=== PATIENT | female | born 1985 | race African-American/Black ===

== ENCOUNTER 2017-02-28 03:30 | Emergency (ER) | payer SELFPAY ==
[~2017-02-28] VITALS: Ht 152.4 cm; Wt 72.6 kg
[~2017-02-28 03:30] MED LIST: NORCO 5-325 TA1 EACH ORAL
[2017-02-28] MEDS ORDERED: Solu-MEDROL 125mg Inj IVP ONE (03:45)
[2017-02-28] MEDS ORDERED: DiphenhydrAMINE 50mg/ml Inj IVP ONE (03:45)
[2017-02-28] MEDS ORDERED: Famotidine 20 MG/ 2ML VIAL IVP ONE (03:45)
[2017-02-28] MEDS ORDERED: PREDNISONE20 MG ORAL (03:48)
[2017-02-28] MEDS ORDERED: BENADRYL25 MG ORAL (03:48)
--- NOTE | 2017-02-28 03:48 | Emergency Room Report ---
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 She presents with chief complaint of severe allergic reaction. She woke up with a rash and diffuse body itching. She had barbecue tonight. She prepared the ingredients herself. No new medication. No nausea or vomiting. No respiratory complaint. She took some liquid Benadryl. Allergies: Coded Allergies: ASPIRIN (Verified Allergy, Unknown, 07/12/15) IBUPROFEN (Verified Allergy, Unknown, 07/12/15) Patient History Past Medical History: see triage record, old chart reviewed Past Surgical History: none Pertinent Family History: none Social History: Denies: smoking Now: No Immunizations: other Reviewed Nursing Documentation: PMH: Agreed, PSxH: Agreed Review of Systems Eye: Denies: blurred vision, eye pain ENT: Denies: ear pain, nose congestion, throat swelling Respiratory: Denies: cough, shortness of breath Cardiovascular: Denies: chest pain, palpitations Gastrointestinal: Denies: abdominal pain, diarrhea, nausea, vomiting Musculoskeletal: Denies: back pain, joint pain Skin: Denies: rash Neurological: Denies: headache, numbness Endocrine: Denies: increased thirst, increased urine Hematologic/Lymphatic: Denies: easy bruising All Other Systems: negative except mentioned in HPI Physical Exam vitals unremarkable Sp02 EP Interpretation: reviewed, normal General Appearance: well appearing, no apparent distress, alert Head: normocephalic, atraumatic Eyes: bilateral eye EOMI, bilateral eye PERRL ENT: hearing grossly normal, normal pharynx Neck: full range of motion, supple, no meningismus Respiratory: chest non-tender, lungs clear, normal breath sounds Cardiovascular #1: regular rate, rhythm, no murmur Gastrointestinal: normal bowel sounds, non tender, no mass, no organomegaly, no bruit, non-distended Musculoskeletal: back normal, gait/station normal, normal range of motion Neurologic: alert, oriented x3 Psychiatric: mood/affect normal Skin: warm/dry, other - Diffuse urticaria Medical Decision Making Diagnostic Impression: Primary Impression: Allergic reaction Qualified Codes: T78.40XA - Allergy, unspecified, initial encounter ER Course Patient present with allergic reaction. Unknown etiology. No evidence of anaphylaxis. Better after medication. We'll discharge home. Status: improved Disposition: HOME, SELF-CARE Condition: Stable Scripts Prednisone* (PREDNISONE*) 20 Mg Tablet 60 MG ORAL DAILY, #15 TAB Prov: STEPHANIE FERRER M.D. 02/28/17 Diphenhydramine Hcl* (BENADRYL*) 25 Mg Capsule 50 MG ORAL Q6H Y for Itching, #30 CAP Prov: STEPHANIE FERRER M.D. 02/28/17 Additional Instructions: Followup with your Dr. in 2-3 days. Return if symptom worsen. STEPHANIE FERRER M.D. Feb 28, 2017 03:48
[2017-02-28 05:12] VITALS: BP 110/66
[2017-02-28 05:13] VITALS: BP 110/66
== END 2017-02-28 05:14 | disposition home or self-care (01) ==
LOC: EMR 05:03
DX: L50.0 Allergic urticaria (principal); Z88.6 Allergy status to analgesic agent; Z91.018 Allergy to other foods
CPT/HCPCS: 96374; 96375; 99284; J1200; J2930; S0028

== ENCOUNTER 2019-08-13 10:23 | Emergency (ER) | payer MEDICAID ==
[~2019-08-13] VITALS: Ht 154.9 cm; Wt 72.6 kg
[~2019-08-13 10:23] MED LIST changes: +BENADRYL25 MG ORAL; +PREDNISONE20 MG ORAL
--- NOTE | 2019-08-13 10:36 | NUR ---
ED Nurse Note: Pt ambulated to ED with c/o flu-like symptoms with nasal congestion, cough, bodyache x 4 days. Pt is AOx4, VSS, on RA. Placed on bed.
[2019-08-13 10:38] VITALS: BP 113/76
[2019-08-13] MEDS ORDERED: PROMETHAZINE-C118 M1 ORAL (11:06)
[2019-08-13] MEDS ORDERED: ALBUTEROL SULF8.5 GM INH (11:06)
[2019-08-13] MEDS ORDERED: TAMIFLU75 MG ORAL (11:06)
--- NOTE | 2019-08-13 11:18 | NUR ---
ED Nurse Note: Patient is being d/c from medical care. D/C instruction and prescription given to patient. All questions were answered. Patient ambulated out with steady gait.
--- NOTE | 2019-08-13 14:33 | Emergency Room Report ---
History of Present Illness General Chief Complaint: Flu Like Symptoms Source: Patient Present Illness Allergies: Coded Allergies: ASPIRIN (Verified Allergy, Unknown, 07/12/15) IBUPROFEN (Verified Allergy, Unknown, 07/12/15) Patient History Last Menstrual Period: 06/2019 Now: No Nursing Documentation-[facility] Past Medical History: No Stated History Physical Exam Vital Signs Date Time Temp Pulse Resp B/P (MAP) Pulse Ox O2 Delivery O2 Flow Rate FiO2 08/13/19 10:29 98.1 83 16 113/76 (88) 98 Room Air Medical Decision Making Diagnostic Impression: Primary Impression: Influenza-like symptoms Last Vital Signs Date Time Temp Pulse Resp B/P (MAP) Pulse Ox O2 Delivery O2 Flow Rate FiO2 08/13/19 10:38 83 16 Room Air 08/13/19 10:38 98.1 113/76 99 Disposition: HOME, SELF-CARE Condition: Stable Scripts Albuterol Sulfate* (ALBUTEROL SULFATE MDI*) 8.5 Gm Hfa.aer.ad 2 PUFF INH Q6H, #1 EA 0 Refills Prov: Tato Lucero MD 08/13/19 Codeine/Promethazine Hcl* (PROMETHAZINE-CODEINE SYRUP*) 118 Ml Syrup 5 ML ORAL Q6H PRN for For Cough, #118 ML 0 Refills Prov: Tato Lucero MD 08/13/19 Oseltamivir Phosphate (Tamiflu) 75 Mg Capsule 75 MG ORAL TWICE A DAY for 5 Days, CAP Prov: Tato Lucero MD 08/13/19 Referrals: [facility],REFERRING (PCP) Kymberly Mendoza [facility] Patient Instructions: Influenza, Adult, [id number] Tato Lucero MD Aug 13, 2019 14:33
== END 2019-08-13 11:18 | disposition home or self-care (01) ==
LOC: EMR 10:44
DX: J11.1 Influenza due to unidentified influenza virus with other respiratory manifestations (principal); Z88.6 Allergy status to analgesic agent
CPT/HCPCS: 99282